=== PATIENT | male | born 1985 | race Caucasian/White ===

== ENCOUNTER 2019-07-22 12:55 | Emergency (ER) | payer OTHER ==
[~2019-07-22] VITALS: Ht 175.3 cm; Wt 90.0 kg
[2019-07-22 13:08] VITALS: BP 135/95; Ht 175.3 cm; Wt 90.0 kg
== END 2019-07-22 13:34 | disposition home or self-care (01) ==
LOC: ED 12:55
DX: H10.31 Unspecified acute conjunctivitis, right eye (principal); E11.9 Type 2 diabetes mellitus without complications